=== PATIENT | female | born 1940 | race Caucasian/White ===

== ENCOUNTER 2017-07-02 21:53 | Emergency (ER) | payer MEDICARE ==
[~2017-07-02] VITALS: Ht 167.6 cm; Wt 93.8 kg
[2017-07-02 22:50] VITALS: BP 157/76; PULSE 75; RESP 16; TEMP 97.9; O2SAT 96
[2017-07-03 00:17] VITALS: BP 149/88; PULSE 72; RESP 16; O2SAT 97
[2017-07-03] MEDS ORDERED: ATOR10TA15 PO (00:26)
[2017-07-03] MEDS ORDERED: LISI10TA3 PO (00:26)
[2017-07-03] MEDS ORDERED: GLIP5TAB8 PO (00:26)
[2017-07-03] MEDS ORDERED: CLON0.5T PO (00:26)
[2017-07-03] MEDS ORDERED: METF500T PO (00:30)
[2017-07-03] MEDS ORDERED: CALC500T55 PO (00:30)
[2017-07-03] MEDS ORDERED: METF1000 PO (00:32)
--- NOTE | 2017-07-03 00:45 | PD ---
HPI Chief Complaint: Pain: Acute or Chronic Time Seen by Provider: 00:43 Travel History International Travel<30 days: No Contact w/Intl Traveler<30days: No Traveled to known affect area: No History of Present Illness HPI The patient is a 77-year-old female that complains of pain on the right knee since 3:30 PM today. She states she cannot walk because of the pain. She denies any trauma. The patient has persistent swelling in her left leg and her left leg is shorter than her right leg, she apparently had polio as a child. She took naproxen tablet tonight without relief. PFSH Past Medical History High Cholesterol: Yes Diabetes: Yes (takes Metformin) Patient Takes Glucophage: Yes (07/02/17 at 0800) Diminished Hearing: No Hypertension: Yes Medical other: Yes (Restless leg syndrome) Immunizations Current: Yes Shingles: Yes Sleep Apnea: Yes Tetanus Vaccination: < 5 Years Influenza Vaccination: Yes ?: Not Past Surgical History Surgical History: No Previous Surgery Social History Alcohol Use: Yes (occasional) Tobacco Use: No Substance Use: No Allergies-Medications (Allergen,Severity, Reaction): Coded Allergies: aspirin (Verified Allergy, Severe, Nausea/Vomiting, 07/03/17) Reported Meds & Prescriptions Reported Meds & Active Scripts Active Reported Metformin (Metformin HCl) 1,000 Mg Tab 1,000 Mg PO BIDPC Calcium Magnesium Caplet (Calcium Carb,Gluc/Mag Ox,Gluc) 500 Mg Calcium-250 Mg Tablet 1 Tab PO DAILY Clonazepam 0.5 Mg Tab 0.5 Mg PO BID Atorvastatin (Atorvastatin Calcium) 10 Mg Tab 10 Mg PO HS Glipizide 5 Mg Tab 5 Mg PO DAILY Take 30 minutes before a meal Lisinopril 10 Mg Tab 10 Mg PO DAILY Review of Systems Except as stated in HPI: all other systems reviewed are Neg Physical Exam Narrative GENERAL: Well-nourished, alert and oriented, slightly obese patient in slight apparent distress with her right knee pain. Her vital signs show blood pressure 157/76 and repeat is 149/88. The rest the vital signs are normal. SKIN: Focused skin assessment warm/dry. No contusions or erythema is seen. HEAD: Normocephalic. EYES: No scleral icterus. No injection or drainage. NECK: Supple, trachea midline. No JVD or lymphadenopathy. CARDIOVASCULAR: Regular rate and rhythm without murmurs, gallops, or rubs. RESPIRATORY: Breath sounds equal bilaterally. No accessory muscle use. GASTROINTESTINAL: Abdomen soft, non-tender, nondistended. MUSCULOSKELETAL: No cyanosis, or edema except for slight edema in the left leg. The patient has tenderness to the posterior aspect of the knee, collaterals, drawer, Christa all intact the patient has pain on any flexion of the knee. She does have full range of motion flexion of the right knee but with pain. BACK: Nontender without obvious deformity. No CVA tenderness. Data Data Last Documented VS Vital Signs Date Time Temp Pulse Resp B/P (MAP) Pulse Ox O2 Delivery O2 Flow Rate FiO2 07/03/17 01:57 63 16 168/85 (112) 97 Room Air 07/02/17 22:50 97.9 Orders Orders Knee, Complete (4vws) (07/03/17 00:45) [facility] Medical Decision Making Medical Screen Exam Complete: Yes Emergency Medical Condition: Yes Medical Record Reviewed: Yes Interpretation(s) X-rays show no acute findings, mild osteoarthritis of the right knee. Differential Diagnosis Cartilage tear, ruptured Hogan cyst, tibial plateau fracture, osteoarthritis right knee Narrative Course The patient has a history arthritis of the right knee. This could be a ruptured popliteal cyst or Hogan's cyst but this is more likely pain from osteoarthritis. She will need to use a walker to keep weight off the leg. She is not able to use crutches. She should follow-up with a primary care physician next week. She is given Mobic. Diagnosis Primary Impression: Right knee pain Additional Impression: Osteoarthritis of right knee Additional Instructions: As we discussed, the Mobic is one tablet daily. It may take weeks for this need to calm down. Follow-up with a primary care physician next week. Med/Other Pt SpecificInfo: Prescription(s) given Scripts Meloxicam (Mobic) 15 Mg Tab 15 MG PO DAILY for 30 Days, #30 TAB 0 Refills Prov: Silvano Tafoya MD 07/03/17 Disposition: 01 DISCHARGE HOME Condition: Stable Silvano Tafoya MD Jul 03, 2017 00:45
--- NOTE | 2017-07-03 01:49 | RADRPT ---
EXAM DATE/TIME: 07/03/2017 00:48 [facility] COMPARISON: No previous studies available for comparison. INDICATIONS : Right posterior knee pain, no known trauma. MEDICAL HISTORY : None. SURGICAL HISTORY : None. ENCOUNTER: Initial ACUITY: 1 day PAIN SCORE: 7/10 LOCATION: Right knee FINDINGS: Four view examination of the right knee demonstrates no evidence of fracture or dislocation. Bony mi neralization is normal. The articular surfaces are intact. The suprapatellar soft tissues have a no rmal configuration. CONCLUSION: 1. No acute findings. Mild osteoarthritis at the right knee. Charlie Matos MD on July 03, 2017 at 1:44 Board Certified Radiologist. This report was verified electronically.
[2017-07-03 01:57] VITALS: BP 168/85; PULSE 63; RESP 16; O2SAT 97
[2017-07-03] MEDS ORDERED: MOBI15TA PO (02:41)
[2017-07-03] MEDS ORDERED: KETOROLAC TROMETHAMINE 60 MG/2 ML (IM) VIAL IM ONE (02:45)
[2017-07-03 03:17] VITALS: BP 160/80
== END 2017-07-03 03:18 | disposition home or self-care (01) ==
LOC: PHED 21:53
DX: M17.11 Unilateral primary osteoarthritis, right knee (principal); E78.00 Pure hypercholesterolemia, unspecified; E11.9 Type 2 diabetes mellitus without complications; I10 Essential (primary) hypertension; G25.81 Restless legs syndrome; Z86.12 Personal history of poliomyelitis
CPT/HCPCS: 73564; 96372; 99284; J1885

== ENCOUNTER 2017-07-09 20:05 | Emergency (ER) | payer MEDICARE ==
[~2017-07-09 20:05] MED LIST: ATOR10TA15 PO; CALC500T55 PO; CLON0.5T PO; GLIP5TAB8 PO; LISI10TA3 PO; METF1000 PO; MOBI15TA PO
[2017-07-09 20:41] VITALS: BP 135/90; PULSE 68; RESP 20; TEMP 98.4; O2SAT 97
[2017-07-09] MEDS ORDERED: ACETAMINOPHEN/HYDROcodone 325 MG/5 MG TAB PO ONE (22:45)
--- NOTE | 2017-07-09 22:49 | PD ---
HPI Chief Complaint: right leg pain Time Seen by Provider: 22:32 Travel History International Travel<30 days: No Contact w/Intl Traveler<30days: No Traveled to known affect area: No History of Present Illness HPI 77yo F with PMH of HTN presents to the ED with persistent right leg pain for 1 week. Pt was seen at [facility] 07/02/17 and had xray right knee that showed mild osteoarthritis. She was discharge with meloxicam but said it is not really helping. Pt said she has pain more in right calf and posterior knee and thigh and not really in the knee. Said she went to her primary care physician today who was concern about a DVT and sent her here. Denies any trauma, fever, chest pain, sob, n/v, abdominal pain, focal weakness or numbness. Said her left leg is usually larger than her right leg because of polio but for the last week, her right leg is more swollen than normal. PFSH Past Medical History Anemia: Yes High Cholesterol: Yes Diabetes: Yes Patient Takes Glucophage: Yes Diminished Hearing: No Hypertension: Yes Immunizations Current: Yes Shingles: Yes Sleep Apnea: Yes (WEARS CPAP) Triglycerides - High: Yes Tetanus Vaccination: > 5 Years Influenza Vaccination: Yes ?: Not Menopausal: Yes : 4 Para: 4 Past Surgical History Eye Surgery: Yes (BILAT CATARACT) Social History Alcohol Use: Yes (occasional) Tobacco Use: No Substance Use: No Allergies-Medications (Allergen,Severity, Reaction): Coded Allergies: aspirin (Verified Allergy, Severe, Nausea/Vomiting, 07/09/17) Reported Meds & Prescriptions Reported Meds & Active Scripts Active Mobic (Meloxicam) 15 Mg Tab 15 Mg PO DAILY 30 Days Reported Metformin (Metformin HCl) 1,000 Mg Tab 1,000 Mg PO BIDPC Calcium Magnesium Caplet (Calcium Carb,Gluc/Mag Ox,Gluc) 500 Mg Calcium-250 Mg Tablet 1 Tab PO DAILY Atorvastatin (Atorvastatin Calcium) 10 Mg Tab 10 Mg PO HS Glipizide 5 Mg Tab 5 Mg PO DAILY Take 30 minutes before a meal Lisinopril 10 Mg Tab 10 Mg PO DAILY Review of Systems Except as stated in HPI: all other systems reviewed are Neg Physical Exam Narrative GENERAL: 77yo F in mild distress. SKIN: Focused skin assessment warm/dry. HEAD: Atraumatic. Normocephalic. CARDIOVASCULAR: Regular rate and rhythm. + murmur appreciated. RESPIRATORY: No accessory muscle use. Clear to auscultation. Breath sounds equal bilaterally. GASTROINTESTINAL: Abdomen soft, non-tender, nondistended. MUSCULOSKELETAL: RLE: Trace edema. DP 2+. +Calf tenderness. +TTP popliteal region. FROM right knee. Sensation intact. NEUROLOGICAL: Awake and alert. No obvious cranial nerve deficits. Motor grossly within normal limits. Normal speech. PSYCHIATRIC: Appropriate mood and affect; insight and judgment normal. Data Data Last Documented VS Vital Signs Date Time Temp Pulse Resp B/P (MAP) Pulse Ox O2 Delivery O2 Flow Rate FiO2 07/09/17 20:41 98.4 68 20 135/90 (105) 97 Orders Orders Us Leg Venous Doppler (07/09/17 ) Acetamin-Hydrocod 325-5 Mg ([place] 5-325 (07/09/17 22:45) MDM Medical Decision Making Medical Screen Exam Complete: Yes Emergency Medical Condition: Yes Differential Diagnosis DVT vs. musculoskeletal pain Narrative Course 77yo F with right lower extremity pain and swelling for 1 week. Denies any trauma, weakness or numbness. US right lower extremity showed no DVT. Pt given lortab and pain has resolved. Instructed pt to follow up with orthopedic clinic if pain persists. Return precautions given. Diagnosis Primary Impression: Right leg pain Referrals: Ike Obando MD call for appointment Patient Instructions: General Instructions Departure Forms: Tests/Procedures Additional Instructions: Please follow up with orthopedic clinic if pain persists. Return to the ED if symptoms worsen. Med/Other Pt SpecificInfo: Prescription(s) given Scripts Hydrocodone-Acetaminophen (Hydrocodone-Acetaminophen) 5-325 mg Tab 1 TAB PO Q6H Y for PAIN, #7 TAB 0 Refills Prov: María Miner 07/09/17 Disposition: 01 DISCHARGE HOME Condition: Stable María Miner Jul 09, 2017 22:48
--- NOTE | 2017-07-09 23:54 | RADRPT ---
EXAM DATE/TIME: 07/09/2017 23:32 [facility] COMPARISON: No previous studies available for comparison. INDICATIONS : Right leg pain. MEDICAL HISTORY : Hypercholesterolemia. Hyperlipidemia. HTN. Sleep apnea. Diabetes. Shingles. SURGICAL HISTORY : Bilateral cataract. ENCOUNTER: Initial ACUITY: 1 week PAIN SCORE: 10/10 LOCATION: Right leg. TECHNIQUE: Venous ultrasound of the leg was performed from the inguinal ligament to the proximal calf. Real-amy e, color Doppler and spectral tracing, compression and augmentation techniques were used. FINDINGS: There is normal compressibility of the deep venous system from the inguinal region to the proximal ca lf. No echogenic clot is seen in the lumen of the common femoral, femoral, popliteal, and posterior tibial veins. There is a normal response of the venous system to proximal and distal augmentation an d respiration. CONCLUSION: No DVT is identified within the right lower extremity. Alex Keller MD on July 09, 2017 at 23:52 Board Certified Radiologist. This report was verified electronically.
[2017-07-09] MEDS ORDERED: HYDR-3516 PO (23:58)
[2017-07-10 00:11] VITALS: BP 146/75
== END 2017-07-10 00:13 | disposition home or self-care (01) ==
LOC: PHED 20:05
DX: M79.604 Pain in right leg (principal)
CPT/HCPCS: 93971; 99284